=== PATIENT | male | born 1940 | race Caucasian/White ===

== ENCOUNTER 2020-05-02 13:12 | Emergency (ER) | payer MEDICARE, OTHER ==
[~2020-05-02] VITALS: Ht 175.3 cm; Wt 65.0 kg
--- NOTE | 2020-05-02 14:01 | NUR ---
PT COMPLAINING OF MID ABD PAIN FROM EPIGASTRIC TO BELOW UMBILICUS FOR ONE WEEK WITH INTERMITTENT RADIATION TO BACK. +NAUSEA AND SOB. SENT BY FOR DX OF ANEURYSM. HOSPITALIZED IN 11/2019 AND TRANSFERRED TO [facility] FOR ANEURYSM (19 DAYS TOTAL). PLACED PT ON ART PSYCHOTHERAPIST AND IV OBTAINED. VS STABLE AT THIS TIME. WILL CONTINUE TO MONITOR.
[2020-05-02 15:06] LABS: ANION GAP 9 mmol/L (5-15); CALCIUM 8.6 mg/dL (8.5-10.1); CHLORIDE 110 mmol/L (98-107)
[2020-05-02 15:10] LABS: ALANINE AMINOTRANSFERASE 15 U/L (12-78); ALKALINE PHOSPHATASE 88 U/L (45-117); BILIRUBIN,TOTAL 0.5 mg/dL (0.2-1.0); CREATININE 2.23 mg/dL (0.7-1.3); TOTAL PROTEIN 6.6 g/dL (6.4-8.2)
[2020-05-02 15:13] LABS: MEAN CORPUSCULAR HEMOGLOBIN 27.3 pg (27.5-34.5); MEAN CORPUSCULAR HGB CONC 32.1 g/dL (33.2-36.2); MEAN CORPUSCULAR VOLUME 85.1 fL (81-97); MEAN PLATELET VOLUME 9.5 fL (7.4-10.4); PLATELET COUNT 61 x10^3/uL (130-400); RED BLOOD COUNT 3.21 x10^6/uL (4.38-5.82); RED CELL DISTRIBUTION WIDTH 17.4 % (9.4-14.8)
[2020-05-02 15:14] LABS: BASOPHILS # (AUTO) 0.05 x10^3/uL (0-0.1); BASOPHILS % (AUTO) 1 % (0-1); EOSINOPHILS # (AUTO) 0.18 x10^3/uL (0-0.4); EOSINOPHILS % (AUTO) 3 % (1-7); LYMPHOCYTES # (AUTO) 1.26 x10^3/uL (1-3.4); LYMPHOCYTES % (AUTO) 19 % (22-44); MD MORPH REVIEW ONLY; MONOCYTES # (AUTO) 0.61 x10^3/uL (0.2-0.8); MONOCYTES % (AUTO) 9 % (2-9); NEUTROPHILS # (AUTO) 4.74 x10^3/uL (1.8-6.8); NEUTROPHILS % (AUTO) 69 % (42-75)
[2020-05-02 16:13] LABS: MICROSCOPIC AUTO
[2020-05-02 16:39] LABS: ANISOCYTOSIS 1+
[2020-05-02 16:40] LABS: HYPOCHROMIA 1+; OVALOCYTES 1+
[2020-05-02 16:41] LABS: <PLATELET ESTIMATE> DECREASED; <PLT MORPHOLOGY> NORMAL PLT MORPH; ECHINOCYTES 1+; MICROCYTOSIS 1+
[2020-05-02] MEDS ORDERED: LORazepam 2 MG/ML, 1ML ONE (16:45)
[2020-05-02] MEDS ORDERED: LORazepam 2 MG/ML, 1ML IVPush ONE (17:00)
[2020-05-02] MEDS ORDERED: hydrALAzine 20 MG/ML, 1ML IV ONE (17:00)
[2020-05-02] MEDS ORDERED: OMNIPAQUE 350 MG/ML, 100ML BOTTLE ONE (17:10)
[2020-05-02] MEDS ORDERED: hydrALAzine 20 MG/ML, 1ML ONE (17:51)
--- NOTE | 2020-05-02 18:24 | NUR ---
PER MD, STARTED CARDENE AT 5 MG/HR WITH A MAP GOAL OF 60-70. WILL CONTINUE TO MONITOR AND TITRATE DRIP PER INSTRUCTION.
--- NOTE | 2020-05-02 18:28 | NUR ---
THROUGHPUT NOTE: TRANSFER REQUESTED TO [facility]. SPOKE TO ANIRUDH AT TRANSFER CENTER.
--- NOTE | 2020-05-02 18:58 | NUR ---
THROUGHPUT NOTE: [facility] CALLED BACK WITH ACCEPTING DR. ZULEYMA PRATT. [facility] CALLED FOR AIR TRANSPORT PER DR. SALCEDO.
--- NOTE | 2020-05-02 19:10 | NUR ---
REPORT GIVEN TO NASIR OLIVEIRA. PT TAKEN TO TR3 TO BEGIN CENTRAL LINE FOR BETTER ACCESS. BLOOD TO BE STARTED S/P LINE PLACEMENT. REPORT GIVEN TO MARII MUNOZ WHO ASSUMED CARE OF PT.
--- NOTE | 2020-05-02 19:15 | NUR ---
REPORT FROM KELLI MUNOZ. PT MOVED TO TRAUMA 03. FAMILY IMN Addendum: 05/02/20 at 2013 by MORRO IN WAITING ROOM. REPORT CALLED TO NASIR.
[2020-05-02] MEDS ORDERED: LABETALOL 5MG/ML, 20ML ONE (19:17)
[2020-05-02] MEDS ORDERED: LABETALOL 5MG/ML, 20ML IVPush ONE (19:30)
[2020-05-02 19:53] VITALS: BP 106/56
--- NOTE | 2020-05-02 20:04 | NUR ---
central ine placed by . pt tolerated well. Blood running. care flight to take 15 min vitals. report given to care flight.
--- NOTE | 2020-05-02 20:11 | NUR ---
PT BEING TRANSFERED WITH BLOOD RUNNING. PER ED SUP. CAREFLIGHT TO GET 15 MIN VITALS.
--- NOTE | 2020-05-02 21:09 | NUR ---
THROUGHPUT NOTE: CXR READ ALONG WITH THE REST OF THE RADILOGY READS/LABS FAXED TO [facility] AT THIS TIME EVEN THOUGH ORIGINAL PACKET SENT TO [facility] HAD AFOREMENTIONED INFORMATION. DR. SALCEDO WANTED TO HAVE CXR READ FAXED SPECIFICALLY SINCE HE LEFT BEFORE CXR READ WAS BACK. INFORMATION REGARDING CXR PROVIDED TO STAFF IN THE ER AND FAXED TO THE NUMBER [phone] REQUESTED BY STAFF.
== END 2020-05-02 20:24 | disposition short-term general hospital (02) ==
LOC: ED 13:35
DX: I71.4 Abdominal aortic aneurysm, without rupture (principal); D64.9 Anemia, unspecified; I12.9 Hypertensive chronic kidney disease with stage 1 through stage 4 chronic kidney disease, or unspecified chronic kidney disease; N18.9 Chronic kidney disease, unspecified; K59.00 Constipation, unspecified; R10.30 Lower abdominal pain, unspecified; R11.0 Nausea; Z87.891 Personal history of nicotine dependence
CPT/HCPCS: 36415; 36556; 71045; 71275; 74174; 74176; 80053; 81001; 83690; 85025; 86850; 86900; 86923; 87086; 87186; 93005; 96365; 96366; 96375; 99291; J0360; J2060; J7050; P9016; Q9967